=== PATIENT | female | born 2000 | race Caucasian/White ===

== ENCOUNTER → 2022-07-29 | Outpatient (REF) | payer OTHER ==
[~2022-07-29] MED LIST: COLA100C5 PO; IBUP80TA PO; PERCOCET PO; PREN1TAB18 PO
== END ==
LOC: M PLALAB 13:15
PROVIDERS: ATTEND Obstetrics & Gynecology
DX: O09.293 Supervision of pregnancy with other poor reproductive or obstetric history, third trimester (principal); Z3A.00 Weeks of gestation of pregnancy not specified
CPT/HCPCS: 87081; G0463

== ENCOUNTER 2022-08-02 07:04 | Inpatient (IN) | payer OTHER ==
[~2022-08-02] VITALS: Ht 165.1 cm; Wt 101.6 kg
[2022-08-02] VITALS (7 sets, daily range): BP systolic 100–129; BP diastolic 47–94
[~2022-08-02 07:04] MED LIST changes: -COLA100C5 PO; -IBUP80TA PO; -PERCOCET PO
[2022-08-02] MEDS ORDERED: LR 1,000 ML IV SCH ×3 (07:45→12:35)
[2022-08-02] MEDS ORDERED: BICITRA 30ML SOLN UDC PO ONE (07:45)
[2022-08-02] MEDS ORDERED: LR 1,000 ML IV ONE (07:45)
[2022-08-02] MEDS ORDERED: ceFAZolin SOD 2 GM in IV 1 EA IV ONE (07:45)
[2022-08-02] MEDS ORDERED: HOME MED LIST COMPLETE! XX SCH (07:55)
[2022-08-02 08:19] LABS: HEMATOCRIT 33.6 % (36.0-47.0); HEMOGLOBIN 10.5 g/dl (12.0-15.5); MEAN CORPUSCULAR HEMOGLOBIN 24.4 pg (27.0-33.0); MEAN CORPUSCULAR HGB CONC 31.3 g/dl (32.0-36.5); MEAN CORPUSCULAR VOLUME 78.1 fl (80.0-96.0); PLATELET COUNT, AUTOMATED 235 10^3/uL (150-450); WHITE BLOOD COUNT 7.6 10^3/uL (4.0-10.0)
[2022-08-02] MEDS ORDERED: NALBUPHINE HCL 10 MG/ML 1ML AMP IV PRN (08:45)
[2022-08-02] MEDS ORDERED: METOCLOPRAMIDE INJ 10MG/2ML VIAL IV PRN (08:45)
[2022-08-02] MEDS ORDERED: diphenhydrAMINE 50MG/ML VIAL IV PRN (08:45)
[2022-08-02] MEDS ORDERED: MORPHINE 2 MG/ML 1ML VIAL IV PRN ×2 (08:45→12:35)
[2022-08-02] MEDS ORDERED: **NOTE PATIENT COMMENT** MISC XX SCH (08:45)
[2022-08-02] MEDS ORDERED: NALOXONE INJ 0.4MG/1ML VIAL IV PRN ×2 (08:45)
[2022-08-02] MEDS ORDERED: fentaNYL 100 MCG/2 ML INJECTION IV PRN ×2 (08:45→12:35)
[2022-08-02] MEDS ORDERED: MEPERIDINE 25 MG/ML 1ML VIAL IV PRN ×2 (08:45→12:35)
[2022-08-02] MEDS ORDERED: oxyCODONE 5MG TAB PO PRN ×2 (08:45→12:35)
[2022-08-02] MEDS ORDERED: ONDANSETRON 4MG 2ML VIAL IV PRN (08:45)
[2022-08-02] MEDS: SLF 3 ML SYR IV SCH ×2 (08:45→16:45)
[2022-08-02] MEDS: PRENATAL VITAMINS CHEWABLE TABLET PO SCH (09:00)
[2022-08-02] MEDS ORDERED: MORPHINE PRES-FREE INJ 10 MG/10 ML VIAL As Ordered ONE (09:14)
[2022-08-02] MEDS ORDERED: OXYTOCIN 30UNITS IN 0.9% NaCl 500ML IV BAG As Ordered ONE ×2 (09:15→12:12)
[2022-08-02] MEDS ORDERED: PHENYLephrine 500MCG 5ML (100MCG/ML) SYRINGE As Ordered ONE (09:15)
[2022-08-02] MEDS ORDERED: ePHEDrine SULFATE 25 MG/5 ML(5MG/ML) SYRINGE As Ordered ONE (09:16)
[2022-08-02] MEDS ORDERED: GLYCOPYRROLATE INJ 0.2 MG/ML 2 ML VIAL As Ordered ONE (11:11)
[2022-08-02] MEDS ORDERED: ONDANSETRON 4MG 2ML VIAL As Ordered ONE (11:14)
[2022-08-02] MEDS ORDERED: KETOROLAC 60MG 2ML VIAL As Ordered ONE (11:14)
[2022-08-02] MEDS ORDERED: SIMETHICONE 80MG CHEW TAB PO PRN (11:55)
[2022-08-02] MEDS ORDERED: RHOGAM 300MCG (1500IU) INJ IM SCH (11:55)
[2022-08-02] MEDS ORDERED: OXYTOCIN DRIP 30 UNITS in IV 1 EA IV SCH (11:55)
[2022-08-02] MEDS ORDERED: PERCOCET 5MG/325MG TAB PO PRN (11:55)
[2022-08-02] MEDS ORDERED: IBUP80TA PO (12:12)
[2022-08-02] MEDS ORDERED: PERCOCET PO (12:12)
[2022-08-02] MEDS ORDERED: COLA100C5 PO (12:14)
[2022-08-02] MEDS ORDERED: fentaNYL 100 MCG/2 ML INJECTION As Ordered ONE (12:36)
[2022-08-02] MEDS ORDERED: diphenhydrAMINE 50MG/ML VIAL As Ordered ONE (13:10)
[2022-08-02] MEDS: LR 1,000 ML IV SCH ×2 (13:14→23:36)
[2022-08-02] MEDS ORDERED: LR 500 ML IV SCH (18:10)
[2022-08-02] MEDS: KETOROLAC 30 MG/ML 1ML VIAL IV SCH ×2 (18:24→23:36)
[2022-08-03] MEDS: SLF 3 ML SYR IV SCH (00:45)
[2022-08-03 02:00] VITALS: BP 89/55
[2022-08-03 05:31] VITALS: BP 114/55
[2022-08-03] MEDS: KETOROLAC 30 MG/ML 1ML VIAL IV SCH (06:07)
[2022-08-03] MEDS: LR 1,000 ML IV SCH (06:08)
[2022-08-03 07:25] LABS: HEMATOCRIT 23.9 % (36.0-47.0); MEAN CORPUSCULAR HEMOGLOBIN 24.4 pg (27.0-33.0); MEAN CORPUSCULAR HGB CONC 30.5 g/dl (32.0-36.5); MEAN CORPUSCULAR VOLUME 79.9 fl (80.0-96.0); PLATELET COUNT, AUTOMATED 143 10^3/uL (150-450); RED BLOOD COUNT 2.99 10^6/uL (4.00-5.40); WHITE BLOOD COUNT 8.6 10^3/uL (4.0-10.0)
[2022-08-03 07:34] LABS: HEMOGLOBIN 7.3 g/dl (12.0-15.5)
[2022-08-03] MEDS: PRENATAL VITAMINS CHEWABLE TABLET PO SCH (08:46)
[2022-08-03] MEDS: PERCOCET 5MG/325MG TAB PO PRN ×2 (08:47→20:06)
[2022-08-03 10:00] VITALS: BP 99/56
[2022-08-03 14:00] VITALS: BP 101/52
[2022-08-03] MEDS: IBUPROFEN 800 MG TAB PO SCH ×2 (14:14→22:06)
[2022-08-03 18:00] VITALS: BP 108/55
[2022-08-03 22:00] VITALS: BP 116/62
[2022-08-04 02:00] VITALS: BP 114/62
[2022-08-04] MEDS: IBUPROFEN 800 MG TAB PO SCH (05:30)
[2022-08-04 06:00] VITALS: BP 117/67
[2022-08-04] MEDS ORDERED: MEASLES,MUMPS,RUBELLA VACCINE INJ (MMR-II) SC.IMMUN ONE (09:00)
[2022-08-04] MEDS: PRENATAL VITAMINS CHEWABLE TABLET PO SCH (09:26)
[2022-08-04] MEDS: PERCOCET 5MG/325MG TAB PO PRN (13:13)
== END 2022-08-04 12:30 | disposition home or self-care (01) | DRG 773 ==
LOC: M LDI 07:04 → M OBS 14:03
PROVIDERS: ADMIT Obstetrics & Gynecology; ATTEND Obstetrics & Gynecology
PROC: 10D00Z1 Extraction of Products of Conception, Low, Open Approach (ICD-10-PCS; principal; 2022-08-02 09:30)
DX: O26.893 Other specified pregnancy related conditions, third trimester (principal); O09.293 Supervision of pregnancy with other poor reproductive or obstetric history, third trimester; Z3A.39 39 weeks gestation of pregnancy; Z37.0 Single live birth